=== PATIENT | female | born 1950 | race Caucasian/White ===

== ENCOUNTER → 2017-03-17 | Outpatient (CLI) | payer OTHER | END | disposition home or self-care (01) | DX: M25.561 Pain in right knee (principal); M25.661 Stiffness of right knee, not elsewhere classified; R26.2 Difficulty in walking, not elsewhere classified; M62.81 Muscle weakness (generalized); M17.11 Unilateral primary osteoarthritis, right knee | CPT/HCPCS: 97161 GP; 97165 GO; 97530 GP; 97537 GO; G8978 GP; G8979 GP; G8980 GP; G8987 GO; G8988 GO; G8989 GO ==

== ENCOUNTER 2017-04-05 21:48 | Inpatient (IN) | payer OTHER ==
[~2017-04-05] VITALS: Ht 167.6 cm; Wt 105.2 kg
[2017-04-06] MEDS ORDERED: IBUPROFEN400 MG PO (06:01)
[2017-04-06] MEDS ORDERED: TYLENOL REGULA325 MG PO (06:02)
[2017-04-06 06:03] VITALS: BP 149/72
[2017-04-06 07:50] LABS: METH RESISTANT S AUREUS PCR NEGATIVE (NEGATIVE); PROBE CHECK PASS; SPECIMEN PROCESSING CONTROL PASS
[2017-04-06 11:10] VITALS: BP 159/68
[2017-04-06 13:00] VITALS: BP 146/66
[2017-04-06 15:45] VITALS: BP 180/78
[2017-04-06 20:26] VITALS: BP 159/70
[2017-04-06 23:40] VITALS: BP 158/72
[2017-04-07 03:55] VITALS: BP 137/66
[2017-04-07 06:29] LABS: HEMATOCRIT 31.8 % (36.0-46.0); MCV 89.8 FL (83-99)
[2017-04-07 06:49] LABS: ANION GAP 7 MEQ/L (2-14); CHLORIDE 101 MEQ/L (99-109); GFR ESTIMATE (CALCULATED) > 59 mL/min/; GLUCOSE 139 mg/dL (70-99); POTASSIUM 3.9 MEQ/L (3.7-5.4); SAMPLE HEMOLYSIS CHECK 0; SAMPLE ICTERIC CHECK 0; SAMPLE LIPEMIA CHECK 0; SODIUM 134 MEQ/L (136-147); UREA NITROGEN (BUN) 11 mg/dL (9-23)
[2017-04-07 08:00] VITALS: BP 150/95
[2017-04-07 12:12] VITALS: BP 151/70
[2017-04-07 16:11] VITALS: BP 145/65
[2017-04-07 20:28] VITALS: BP 160/74
[2017-04-08] VITALS: BP 156/72
[2017-04-08 04:06] VITALS: BP 130/57
[2017-04-08 06:14] LABS: HEMATOCRIT 30.9 % (36.0-46.0); MCV 91.7 FL (83-99)
[2017-04-08 08:18] VITALS: BP 122/58
[2017-04-08 12:00] VITALS: BP 132/59
[2017-04-08 16:26] VITALS: BP 137/61
[2017-04-08 20:26] VITALS: BP 149/63
[2017-04-09] VITALS: BP 158/66
[2017-04-09 04:10] VITALS: BP 112/49
[2017-04-09] MEDS ORDERED: ELIQUIS2.5 MG PO (08:10)
[2017-04-09] MEDS ORDERED: SENNA PLUS TAB1 EACH PO (08:10)
[2017-04-09] MEDS ORDERED: HYDROMORPHONE HC2 MG PO (08:10)
[2017-04-09 08:17] VITALS: BP 162/70
== END 2017-04-09 10:55 | DRG 470 ==
LOC: CANRESERV 21:48 → ENRESERV 21:48 → 2SOUTH 04-06 05:23 → 3WEST 04-06 05:23 → CANRESERV 04-06 10:12 → ENRESERV 04-06 10:12 → 2SOUTH 04-06 10:49 → 3WEST 04-06 10:58 → 2SOUTH 04-06 11:44 → 3WEST 04-09 10:55
PROVIDERS: Orthopaedic Surgery
PROC: 0SRC0J9 Replacement of Right Knee Joint with Synthetic Substitute, Cemented, Open Approach (ICD-10-PCS; principal; 2017-04-06)
DX: M17.11 Unilateral primary osteoarthritis, right knee (principal); M85.861 Other specified disorders of bone density and structure, right lower leg; E66.9 Obesity, unspecified; Z68.37 Body mass index [BMI] 37.0-37.9, adult; E78.00 Pure hypercholesterolemia, unspecified; Z90.710 Acquired absence of both cervix and uterus; Z87.891 Personal history of nicotine dependence; Z88.0 Allergy status to penicillin; Z88.5 Allergy status to narcotic agent
CPT/HCPCS: 71010; 80048; 85014; 85018; 87641; C1713; J0131; J0690; J1885; J2250; J2405; J3010; J7050; J7120